=== PATIENT | male | born 1995 | race Caucasian/White ===

== ENCOUNTER 2022-04-21 21:41 | Outpatient (CLI) | payer OTHER, SELFPAY | END 2022-04-21 21:42 | disposition home or self-care (01) | LOC: AMB 05-04 16:50 | PROVIDERS: Visit Provider Internal Medicine | DX: S49.91XA Unspecified injury of right shoulder and upper arm, initial encounter (principal); R06.09 Other forms of dyspnea; V80.018A Animal-rider injured by fall from or being thrown from other animal in noncollision accident, initial encounter; Y93.I9 Activity, other involving external motion; Y92.39 Other specified sports and athletic area as the place of occurrence of the external cause | CPT/HCPCS: A0425; A0427 ==

== ENCOUNTER 2022-04-21 22:14 | Emergency (ER) | payer OTHER, SELFPAY ==
[2022-04-21 22:22] VITALS: BP 104/63; PULSE 69; RESP 20; TEMP 36.7; O2SAT 92; BMI 21.7
[2022-04-21 22:40] VITALS: BP 103/63; PULSE 61; O2SAT 92
--- NOTE | 2022-04-21 22:57 | CRLHL7_ITS ---
For Patients: As a result of the Century Cures Act, medical imaging exams and procedure reports are released immediately into your electronic medical record. You may view this report before your referring provider. If you have questions, please contact your health care provider. INDICATION: Bull injury to right chest and shoulder. TECHNIQUE: CT chest without IV contrast. COMPARISON: None available. FINDINGS: Lungs and pleura: No evidence of pulmonary contusion, laceration, or pneumothorax. Prominent tangle of vessels in the base of the lingula (Series 3, image 79), query presence of a vascular malformation. Heart and vasculature: No cardiomegaly, no pericardial effusion. Postsurgical changes from prior median sternotomy, with epicardial pacer leads noted. Thyroid and lower neck: No suspicious thyroid nodule. Mediastinum/nida: No suspicious lymphadenopathy. Chest wall: No axillary lymphadenopathy. Upper abdomen: No acute abnormality. Bones: Healed fracture deformity of the distal right clavicle. No definite sternoclavicular dislocation. Chronic appearing right anterolateral 2nd rib fracture. IMPRESSION: 1. No evidence of pulmonary contusion, laceration, or pneumothorax. 2. Healed fracture deformities of the distal right clavicle and right 2nd rib. No definite acute fracture identified. 3. Prominent tangle of pulmonary vessels in the base of the lingula, which may reflect a vascular malformation. Please note that all CT scans at this facility use dose modulation, iterative reconstruction, and/or weight-based dosing when appropriate to reduce radiation dose to as low as reasonably achievable. Dictated by María Elena Dodge MD @ 04/22/2022 12:02:36 AM (Electronically Signed)
[2022-04-21 23:00] VITALS: BP 102/66
[2022-04-21] MEDS: HYDROCODONE-ACETAMIN 5-325 MG 1 TAB PO (23:04)
--- NOTE | 2022-04-21 23:37 | ED.GENADULT ---
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 Pt now has significant dyscomfort in the right shoulder but no head or neck injury. No LOC. No abd pain. Pt is able to move the right arm and has no difficulty with circulation. Pain is severe and localized to the right shoulder. No skin breakdown. Pt is up to date on his tetanus shot. No treatments prior to arrival. Related Data Allergies Allergy/AdvReac Type Severity Reaction Status Date / Time vancomycin Allergy Verified 04/21/22 22:29 morphine AdvReac Agitated Verified 04/21/22 22:29 Review of Systems Status of ROS: Reports: 10 or more systems reviewed and unremarkable except as noted in History and below [facility] Medical History (Updated 04/22/22 @ 01:21 by Javier Brown MD) Pacemaker Surgical History (Updated 04/21/22 @ 23:40 by Javier Brown MD) H/O tricuspid valve repair Social History Smoking Status: Never smoker Do you use any of these nicotine containing products: Smokeless Tobacco Second hand tobacco smoke exposure: No How often do you have a drink containing alcohol: 2-3 times a week How many standard drinks containing alcohol do you have on a typical day: 5 or 6 How often do you have six or more drinks on one occasion: Monthly AUDIT-C Alcohol total score: 7 Non-prescribed substance use: denies use service: No Exam Narrative: Exam Narrative: EXAM GENERAL: Patient appears uncomfortable holding his right shoulder EYES: No scleral icterus. ENT: Tympanic membranes and oropharynx normal. THYROID: no thyroid nodules or thyromegaly. LYMPH: No supraclavicular or cervical lymphadenopathy. SKIN: Visible skin seen during exam normal or with benign process only. EXT: No dependent lower extremity pedal edema. No signs of cyanosis. HEART: Regular rate and rhythm with no murmurs, rubs, or gallops. Incision over the sternum well healed. LUNGS: Clear to auscultation bilaterally with no crackles or wheezes. ABD: Soft, non tender, non distended. PSYCH: Good eye contact, speech is not pressured. Neuro: Intact no focal defects Const: Vital Signs, click to edit/add: Vital Signs - 24 hr 04/21/22 22:22 04/21/22 23:44 04/21/22 23:00 Temperature 98.0 F Pulse Rate [Right Pulse Oximeter] 69 63 Respiratory Rate 20 Blood Pressure [Le ft Upper Arm] 104/63 115/68 102/66 Pulse Oximetry 92 93 Oxygen Delivery Me thod Room Air Room Air 04/21/22 22:40 Temperature Pulse Rate [Right Pulse Oximeter] 61 Respiratory Rate Blood Pressure [Le ft Upper Arm] 103/63 Pulse Oximetry 92 Oxygen Delivery Me thod Room Air Course Course Hospital Course: Pt seen and examined. Careful head and neck exam performed. CT of the chest ordered. Reevaluation(s) Reevaluation #1: CT of the chest shows no fractures in the chest or right shoulder. Plain films of the right shoulder and humerus also normal. Mild bruising noted but range of motion improving. Time: 01:17 Vital Signs Vital signs: Initial Vital Signs Temperature 98.0 F 04/21/22 22:22 Temperature Source Oral 04/21/22 22:22 Pulse Rate 69 04/21/22 22:22 Pulse Rhythm 04/21/22 22:22 Respiratory Rate 20 04/21/22 22:22 Blood Pressure 104/63 04/21/22 22:22 Blood Pressure Mean 76 04/21/22 22:22 Blood Pressure Position Supine 04/21/22 22:22 Pulse Oximetry 92 04/21/22 22:22 Oxygen Delivery Method 04/21/22 22:22 Vital Signs Temperature 98.0 F 04/21/22 22:22 Pulse Rate 69 04/21/22 22:22 Respiratory Rate 20 04/21/22 22:22 Blood Pressure 104/63 04/21/22 22:22 Pulse Oximetry 92 04/21/22 22:22 Oxygen Delivery Method 04/21/22 22:22 Temperature 98.0 F 04/21/22 22:22 Pulse Rate 63 04/21/22 23:44 Respiratory Rate 20 04/21/22 22:22 Blood Pressure 115/68 04/21/22 23:44 Pulse Oximetry 93 04/21/22 23:44 Oxygen Delivery Method 04/21/22 23:44 Medical Decision Making MDM Narrative Medical decision making narrative: Pt with a significant injury to the right shoulder no fractures on CT or plain films. Range of motion improving. No other injuries. Pt feeling better. Pt placed in a sling. Differential Diagnosis Differential Diagnosis: Rib Fracture, Chest Wall Contusion, Sprain, Fracture Pneumothorax Discharge Plan Discharge Clinical Impression: Shoulder sprain Condition: Stable Instructions: Shoulder Sprain (ED) Additional Instructions: Ice Sling Tylenol Motrin Rest Activity Level: Activity as Tolerated Discharge Diet: Regular Follow Up/Referrals: Provider,Not a Local [Primary Care Provider] - Stand Alone Forms: [employer] Info Instructions
[2022-04-21 23:44] VITALS: BP 115/68; PULSE 63; O2SAT 93
[2022-04-22] VITALS: BP 113/64; PULSE 59; O2SAT 92
--- NOTE | 2022-04-22 00:08 | CRLHL7_ITS ---
For Patients: As a result of the Century Cures Act, medical imaging exams and procedure reports are released immediately into your electronic medical record. You may view this report before your referring provider. If you have questions, please contact your health care provider. INDICATION: Humerus injury TECHNIQUE: Humerus radiograph 2 views right COMPARISON: None FINDINGS: Bone: No acute fractures or aggressive bone lesions are identified. The distal humerus is partially excluded. Joint: The visualized glenohumeral is unremarkable, but the elbow joint is not included. If there is pain or tenderness in this region, dedicated views of the elbow are recommended. Soft tissue: The visualized hemithorax and soft tissues are unremarkable in appearance. No radiopaque foreign bodies are seen. IMPRESSION: 1. No acute osseous injuries or abnormalities are noted. 2. The distal humerus is partially excluded. Dictated by: Mandeep Duke MD @ 04/22/2022 00:46:02 (Electronically Signed)
--- NOTE | 2022-04-22 00:08 | CRLHL7_ITS ---
For Patients: As a result of the Cures Act, medical imaging exams and procedure reports are released immediately into your electronic medical record. You may view this report before your referring provider. If you have questions, please contact your health care provider. Indication: Injury. Technique: Three views of the right shoulder. Comparison: None Findings/Impression: No acute fracture or dislocation. Chronic healed fracture deformity of the distal right clavicle. Visualized right lung is grossly clear. Dictated by María Elena Dodge MD @ 04/22/2022 12:47:24 AM (Electronically Signed)
[2022-04-22 01:00] VITALS: BP 117/64; PULSE 75; O2SAT 92
--- NOTE | 2022-04-22 01:20 | ED.NURSE ---
Med sling applied to pt R arm.
== END 2022-04-22 01:29 | disposition home or self-care (01) ==
PROVIDERS: Emergency Provider Internal Medicine
DX: S43.401A Unspecified sprain of right shoulder joint, initial encounter (principal); W55.29XA Other contact with cow, initial encounter; Y93.89 Activity, other specified; Y92.39 Other specified sports and athletic area as the place of occurrence of the external cause
CPT/HCPCS: 71250; 73030; 73060; 99282; 99283; A9270